=== PATIENT | male | born 1990 | race African-American/Black ===

== ENCOUNTER 2016-11-03 19:52 | Emergency (ER) | payer OTHER ==
[~2016-11-03] VITALS: Ht 200.7 cm; Wt 102.1 kg
[~2016-11-03 19:52] MED LIST: IBUPROFEN600 MG ORAL; NKM
[2016-11-03 20:13] VITALS: BP 130/72
[2016-11-03] MEDS ORDERED: ANAPROX DS550 MG PO (21:36)
--- NOTE | 2016-11-03 21:37 | Emergency Room Report ---
History of Present Illness General Chief Complaint: Headache Source: Patient Present Illness [facility] This is a 26-year-old male with no significant past medical history. He presents with chief complaint of headache on and off for the last 2 weeks. Sometime to 3 times a day. Throbbing in nature. Differential air the head. Denies any fever chills. denies any nausea vomiting. When he get headache he does get some blurry vision. No focal deficit. Normally he does not get headache. Pain is throbbing in nature. 04/17. [id number] medicine helped. No photophobia. Allergies: Coded Allergies: No Known Allergies (Unverified , 04/14/16) Patient History Past Medical History: none Past Surgical History: none Pertinent Family History: none Social History: Denies: smoking Immunizations: other Reviewed Nursing Documentation: PMH: Agreed, PSxH: Agreed Nursing Documentation-PMH Past Medical History: No Stated History Review of Systems Eye: Denies: blurred vision, eye pain ENT: Denies: ear pain, nose congestion, throat swelling Respiratory: Denies: cough, shortness of breath Cardiovascular: Denies: chest pain, palpitations Gastrointestinal: Denies: abdominal pain, diarrhea, nausea, vomiting Musculoskeletal: Denies: back pain, joint pain Skin: Denies: rash Neurological: Reports: headache, Denies: numbness Endocrine: Denies: increased thirst, increased urine Hematologic/Lymphatic: Denies: easy bruising All Other Systems: negative except mentioned in HPI Physical Exam Vital Signs Date Time Temp Pulse Resp B/P Pulse Ox O2 Delivery O2 Flow Rate FiO2 11/03/16 20:00 98.4 73 16 130/72 100 Room Air vitals unremarkable Sp02 EP Interpretation: reviewed, normal General Appearance: well appearing, no apparent distress, alert Head: normocephalic, atraumatic Eyes: bilateral eye EOMI, bilateral eye PERRL ENT: hearing grossly normal, normal pharynx Neck: full range of motion, supple, no meningismus Respiratory: chest non-tender, lungs clear, normal breath sounds Cardiovascular #1: regular rate, rhythm, no murmur Gastrointestinal: normal bowel sounds, non tender, no mass, no organomegaly, no bruit, non-distended Musculoskeletal: back normal, gait/station normal, normal range of motion Psychiatric: mood/affect normal Skin: warm/dry Medical Decision Making Diagnostic Impression: Primary Impression: Headache Qualified Codes: R51 - Headache ER Course Patient presents with new-onset headache. This may be tension versus migrainous headache. No evidence of meningitis, bleed, or neoplastic process. Because this is a change in his frequency and new-onset, over a CT scan. CT scan of the head is negative. We'll discharge home. CT/MRI/US Diagnostic Results CT/MRI/US Diagnostic Results : Imaging Test Ordered: CT head Impression read by radiologist. Negative. Last Vital Signs Date Time Temp Pulse Resp B/P Pulse Ox O2 Delivery O2 Flow Rate FiO2 11/03/16 20:13 98.4 80 16 130/72 100 Room Air Status: improved Disposition: HOME, SELF-CARE Condition: Stable Scripts Naproxen Sodium (ANAPROX DS) 550 Mg Tablet 550 MG PO BID, #30 TAB Prov: KELLY CHAMBERS M.D. 11/03/16 Referrals: NOT CHOSEN [facility]/,REFERRING (PCP) Patient Instructions: General Headache Without Cause Additional Instructions: Followup with your Dr. within 7 days. Return if symptom worsen. If not better you may need a referral to see a neurologist. KELLY CHAMBERS M.D. Nov 03, 2016 21:37
[2016-11-03 22:02] VITALS: BP 127/75
--- NOTE | 2016-11-04 09:53 | Diagnostic Imaging Report ---
Indication: Headache Technique: Contiguous 5 mm thick transaxial imaging of the head obtained in a Siemens Sensation [address] scanner. Soft tissue and bone windows generated. Total Dose length Product (DLP): [address] Dose Index Volume (CTDIvol): 70.38 mGy Comparison: none Findings: The size and configuration of the cortical sulci, basal cisterns, and ventricles are within normal limits for age. There is no mass effect, midline shift, or edema identified. There is no evidence of acute hemorrhage or abnormal intra-axial or extra-axial fluid collections. The bones and soft tissues are unremarkable. Impression: No mass effect, edema or acute bleed. The CT scanner at [facility] is accredited by the [employer] and the scans are performed using protocols designed to limit radiation exposure to as low as reasonably achievable to attain images of sufficient resolution adequate for diagnostic evaluation.
== END 2016-11-03 22:21 | disposition home or self-care (01) ==
LOC: EMR 20:30
DX: R51 Headache (principal)
CPT/HCPCS: 70450; 99284